=== PATIENT | female | born 1990 | race Caucasian/White ===

== ENCOUNTER → 2023-07-06 16:34 | Outpatient (CLI) | payer OTHER, SELFPAY ==
--- NOTE | 2023-07-06 16:30 | DI.US.S_ITS ---
PROCEDURE: US PELVIC COMPLETE INDICATIONS: IRREGULAR PERIODS TECHNIQUE: Real-time scanning was performed of the pelvic organs, with image documentation. Additional endovaginal scanning was necessary due to incomplete visualization of the adnexal and endometrial structures by transabdominal scanning. COMPARISON: None. FINDINGS: Uterus: Uterus is anteverted and normal in size at 6.0 x 3.1 x 3.8 cm. The myometrium is homogeneous. The endometrium measures 4 mm combined thickness. No uterine fibroids. Ovaries: The right ovary measures 2.6 x 2.2 x 1.9 cm, with a calculated ovarian volume of 0.7 cc. The left ovary measures 2.8 x 1.5 x 1.9 cm, with a calculated ovarian volume of 4.4 cc. The ovaries have a normal sonographic appearance. Less than 12 follicles can be seen in each ovary. No adnexal masses are seen. Mild right hydrosalpinx is noted. Other: Mild physiologic fluid within the pelvis. No pathologic free abdominal or pelvic fluid. IMPRESSION: 1. Moderate hydrosalpinx, nonspecific. 2. Otherwise, unremarkable pelvic ultrasound. We strive to produce accurate, complete, and clear reports of imaging services. To assist us in improving patient care, this report was composed using standard report templates and voice recognition software. Therefore, it may contain abnormal punctuation, insertions and/or omissions. Occasional wrong-word or sound-alike substitutions may occur. Though we review the report and make efforts to correct it, we do recommend that the report be read carefully in proper context to recognize any text inaccuracies. Dictated by: Javier Kathleen M.D. on 07/07/2023 at 8:48 Approved by: Javier Kathleen M.D. on 07/07/2023 at 8:52
== END ==
PROVIDERS: PCP Nurse Practitioner Family; Referring Provider Obstetrics & Gynecology; Visit Provider Obstetrics & Gynecology
DX: N92.6 Irregular menstruation, unspecified (principal); N70.11 Chronic salpingitis
CPT/HCPCS: 76830; 76856; 93976

== ENCOUNTER 2023-09-07 17:23 | Emergency (ER) | payer OTHER, SELFPAY ==
[2023-09-07 17:27] VITALS: BP 140/89; PULSE 77; RESP 18; TEMP 36.6; O2SAT 98; BMI 32.5
[2023-09-07] MEDS: ONDANSETRON 4 MG/2 ML INJ IV (17:58)
[2023-09-07] MEDS: SODIUM CHLORIDE 0.9% 1,000 ML 1000 ML IV (17:58)
[2023-09-07 18:08] VITALS: PULSE 76; O2SAT 96
[2023-09-07 18:09] LABS: Add Manual Diff / Slide Review NO; Basophils Absolute Auto 100 /uL (0-100); Basophils Percent Auto 0.9 % (0-2); Eosinophils Absolute Auto 0 /uL (0-450); Eosinophils Percent Auto 0.3 % (2-4); Hematocrit 42.2 % (36-46); Hemoglobin 14.2 g/dL (12.0-16.0); Lymphocytes Absolute Auto 2500 /uL (1100-4500); Lymphocytes Percent Auto 21.4 % (25-40); Mean Corpuscular HGB Conc 33.8 % (30-36); Mean Corpuscular Hemoglobin 27.8 PG (26-34); Mean Corpuscular Volume 82.4 fL (80-100); Monocytes Absolute Auto 400 /uL (0-900); Monocytes Percent Auto 3.4 % (3-14); Neutrophils Absolute Auto 8500 /uL (1500-7000); Platelet Count 297 X10^3/uL (150-400); Red Blood Cell Count 5.12 X10^6/uL (4.0-5.2); Red Cell Distribution Width 13.6 % (11.6-14.8); White Blood Cell Count 11.5 X10^3/uL (4.5-11.0)
[2023-09-07 18:20] LABS: Alanine Aminotransferase 99 IU/L (<35); Albumin 4.8 g/dL (3.5-5.0); Albumin Globulin Ratio 1.3 (1.0-2.8); Alkaline Phosphatase 93 U/L (38-126); Aspartate Aminotransferase 56 IU/L (14-36); BUN Creatinine Ratio 16.4 (6-22); Bilirubin Total 0.9 mg/dL (0.2-1.3); Blood Urea Nitrogen 9 mg/dL (7-17); Carbon Dioxide 25 mmol/L (22-32); Chloride 104 mmol/L (98-107); Estimated Glomerular Filt Rate > 60 mL/min (>60); Globulin 3.7 g/dL (1.7-4.1); Glucose 128 mg/dL (70-100); HEMOLYSIS 26 (0-50); Lipase 55 U/L (23-300); Potassium 4.1 mmol/L (3.4-5.1); Sodium 137 mmol/L (137-145); Total Protein 8.5 g/dL (6.3-8.2)
[2023-09-07 18:30] VITALS: BP 135/89; PULSE 81; O2SAT 95
--- NOTE | 2023-09-07 18:46 | DI.RAD.S_ITS ---
PROCEDURE: XR CHEST 1V INDICATIONS: chest pain TECHNIQUE: One view of the chest was acquired. COMPARISON: None. FINDINGS: Surgical changes and devices: None. Lungs and pleura: Lungs are clear. No pleural effusions or pneumothorax. Mediastinum: Mediastinal contours appear normal. Heart size is normal. Bones and chest wall: No suspicious bony lesions. Overlying soft tissues appear unremarkable. IMPRESSION: No acute pulmonary process. Dictated by: Jes Adame M.D. on 09/07/2023 at 20:12 Approved by: Jes Adame M.D. on 09/07/2023 at 20:15
[2023-09-07 19:00] VITALS: BP 126/82; PULSE 71; O2SAT 95
[2023-09-07] MEDS: DROPERIDOL 5 MG/2 ML VIAL 0.625 MG IV (19:05)
[2023-09-07] MEDS: KETOROLAC 30 MG/ML VIAL 15 MG IV (19:05)
[2023-09-07] MEDS: diphenhydrAMINE 50 MG/ML VIAL 25 MG IV (19:05)
--- NOTE | 2023-09-07 19:10 | ED.HA ---
HPI - Headache General Chief Complaint: Headache Stated Complaint: T-1 V/Headachs/chest/arm pain Time Seen by Provider: 09/07/23 17:43 Mode of arrival: Ambulatory History of Present Illness HPI Narrative: 33-year-old female with a history of headaches presenting today with a headache and had an episode of vomiting that she had chest pain with. Patient says that she has a history of headaches and this is a typical headache. It was not thunderclap in onset it is not associated with fevers. She usually takes ibuprofen, she took ibuprofen this morning and vomited. The patient was still having nausea she says her headaches currently about a 6/10. She had substernal chest pain after vomiting. No personal history of heart disease no personal history of hypertension or elevated cholesterol. Says her father had a stroke. She is not been having fevers, state that she is not . Last menstrual period was about 10 days ago. Related Data Previous Rx's Medication Instructions Recorded cephalexin 500 mg capsule 500 mg PO TID cystitis #15 caps 09/07/23 ondansetron 4 mg disintegrating 4 mg PO Q8H PRN nausea and 09/07/23 tablet vomiting #7 tabs Allergies Allergy/AdvReac Type Severity Reaction Status Date / Time No Known Drug Allergies Allergy Unverified 08/08/23 09:55 Patient History Medical History (Updated 09/07/23 @ 20:36 by Jewel Jean MD) Light sensitivity Headache (~2017) Chronic back pain (~2018) Ankle pain (~2018) Ovarian cyst (~2018) Family History (Updated 08/07/23 @ 20:33 by Bambi Jacinto) Father Stroke Mother Hypertension Hyperlipidemia Grandfather Diabetes mellitus Hypertension Grandfather History of heart disease Stroke Grandmother Diabetes mellitus Social History Smoking Status: Never smoker Smoking Status: Never smoker Substance Use Type: does not use Exam Initial Vital Signs Initial Vital Signs: Vital Signs Temperature 97.9 F 09/07/23 17:27 Pulse Rate 77 09/07/23 17:27 Respiratory Rate 18 09/07/23 17:27 Blood Pressure 140/89 09/07/23 17:27 Pulse Oximetry 98 09/07/23 17:27 Oxygen Delivery Method Room Air 09/07/23 17:27 Const General: No acute distress HENMT Head: normocephalic and atraumatic Eyes Pupils: PERRL EOM: EOM intact bilaterally Neck Neck: no meningeal signs Resp Effort & Inspection: normal respiratory effort Auscultation: clear to auscultation bilaterally Cardio Rate: regular rate Rhythm: regular rhythm Heart Sounds: no murmurs Skin General: dry skin and warm Neuro General: patient alert, patient oriented x3, moves all extremities and no focal motor deficits Course Orders Ordered: ED Orders 09/07/23 18:00 Complete Blood Count AUTO DIFF Stat Comprehensive Metabolic Panel Stat Lipase Stat Trop I [Troponin I] Stat 09/07/23 18:46 Chest [XR chest 1V] Stat 09/07/23 19:09 EKG-12 Lead Stat 09/07/23 20:23 Urine Culture Stat Urine Microscopic Stat Discontinued Medications Diphenhydramine HCl (Diphenhydramine 50 Mg/Ml Vial) 25 mg IV NOW ONE Stop: 09/07/23 18:47 Last Admin: 09/07/23 19:05 Dose: 25 mg Documented By: AMV Droperidol (Droperidol 5 Mg/2 Ml Vial) 0.625 mg IV NOW ONE Stop: 09/07/23 18:47 Last Admin: 09/07/23 19:05 Dose: 0.625 mg Documented By: AMV Sodium Chloride (Normal Saline 0.9%) 1,000 mls @ 1,000 mls/hr IV BOLUS ONE Stop: 09/07/23 18:43 Last Infusion: 09/07/23 18:53 Dose: Infused Documented By: Admin: 09/07/23 17:58 Dose: 1,000 mls/hr Documented By: AMV Ketorolac Tromethamine (Ketorolac 30 Mg/Ml Vial) 15 mg IV NOW ONE Stop: 09/07/23 18:47 Last Admin: 09/07/23 19:05 Dose: 15 mg Documented By: AMV Ondansetron HCl (Ondansetron 4 Mg/2 Ml Inj) 4 mg IV NOW ONE Stop: 09/07/23 17:45 Last Admin: 09/07/23 17:58 Dose: 4 mg Documented By: AMV Vital Signs Vital signs: Vital Signs - 8 hr 09/07/23 17:27 09/07/23 18:08 09/07/23 18:30 Temperature 97.9 F Pulse Rate 77 76 Respiratory Rate 18 Blood Pressure 140/89 135/89 Pulse Oximetry 98 96 Oxygen Delivery Method Room Air 09/07/23 18:30 09/07/23 19:00 09/07/23 19:00 Temperature Pulse Rate 81 71 Respiratory Rate Blood Pressure 126/82 Pulse Oximetry 95 95 Oxygen Delivery Method 09/07/23 19:30 09/07/23 19:30 09/07/23 20:00 Temperature Pulse Rate 77 68 Respiratory Rate Blood Pressure 127/79 Pulse Oximetry 94 94 Oxygen Delivery Method Room Air Room Air 09/07/23 20:00 Temperature 97.8 F Pulse Rate Respiratory Rate 18 Blood Pressure 114/64 Pulse Oximetry Oxygen Delivery Method MDM - Headache Lab Data Lab results narrative: CBC with diff and CMP are unremarkable, troponin is normal 09/07/23 18:00 09/07/23 18:00 Labs: Lab Results 09/07/23 09/07/23 Range/Units 18:00 20:23 WBC 11.5 H (4.5-11.0) X10^3/uL RBC 5.12 (4.0-5.2) X10^6/uL Hgb 14.2 (12.0-16.0) g/dL Hct 42.2 (36-46) % MCV 82.4 (80-100) fL MCH 27.8 (26-34) PG MCHC 33.8 (30-36) % RDW 13.6 (11.6-14.8) % Plt Count 297 (150-400) X10^3/uL Neut % (Auto) 74.0 (50-75) % Lymph % (Auto) 21.4 L (25-40) % [place] % (Auto) 3.4 (3-14) % Eos % (Auto) 0.3 L (2-4) % Baso % (Auto) 0.9 (0-2) % Neut # (Auto) 8500 H (9399-8257) /uL Lymph # (Auto) 2500 (1760-7309) /uL [place] # (Auto) 400 (0-900) /uL Eos # (Auto) 0 (0-450) /uL Baso # (Auto) 100 (0-100) /uL Sodium 137 (137-145) mmol/L Potassium 4.1 (3.4-5.1) mmol/L Chloride 104 (98-107) mmol/L Carbon Dioxide 25 (22-32) mmol/L BUN 9 (7-17) mg/dL Creatinine 0.55 (0.52-1.04) mg/dL Estimated GFR > 60 (>60) mL/min BUN/Creatinine Ratio 16.4 (6-22) Glucose 128 H (70-100) mg/dL Calcium 10.0 (8.4-10.2) mg/dL Total Bilirubin 0.9 (0.2-1.3) mg/dL AST 56 H (14-36) IU/L ALT 99 H (<35) IU/L Alkaline Phosphatase 93 (38-126) U/L Troponin I < 0.012 (0.01-0.034) ng/mL Total Protein 8.5 H (6.3-8.2) g/dL Albumin 4.8 (3.5-5.0) g/dL Globulin 3.7 (1.7-4.1) g/dL Albumin/Globulin Ratio 1.3 (1.0-2.8) Lipase 55 (23-300) U/L Urine RBC None seen (0-5/HPF) Urine WBC 0-1/hpf (0-5/HPF) Ur Squamous Epith Cells 0-1 /hpf (0-5/HPF) Urine Bacteria Few (2-10) H (None) Ur Culture Indicated? Specimen cultured Point of Care Testing Test Results Negative Urine Dip Bedside Urine Glucose Negative Bedside Urine Bilirubin - Negative Bedside Urine Ketone +/- 5 Urine Specific [place] 1.010 Bedside Urine Occult Blood - Negative Bedside Urine pH 7.5 Bedside Urine Protein - Negative Bedside Urine Urobilinogen - Negative Bedside Urine Nitrite + Positive Bedside Urine Leukocytes - Negative Esterase Imaging Data Chest x-ray: My Impression: No acute disease Radiologist's Impression: No acute findings reported. See radiologist's dictation for details ECG Data Interpretation: Normal sinus rhythm at [address] segment changes normal axis normal intervals no previous infarction MDM Narrative Medical decision making narrative: 33-year-old female with a history of headaches presenting with a headache and vomiting. She is also complaining of chest pain that occurred when she vomited. Does not have cardiac risk factors, no features of the presentation this suggest pulmonary embolism. Headache does not have red flag features. Chest pain evaluation is reassuring and she responded well to treatment with droperidol ketorolac and Benadryl. I wrote a prescription for ondansetron for her use at home if needed. Additionally, the patient had urinary symptoms yesterday, and urinalysis is suggestive of infection. I covered this with cephalexin Discharge Plan Departure Patient Disposition: Home Clinical Impression: Cystitis Headache Qualifiers: Headache type: unspecified Headache chronicity pattern: acute headache Intractability: not intractable Qualified Code(s): R51.9 - Headache, unspecified Chest pain Qualifiers: Chest pain type: unspecified Qualified Code(s): R07.9 - Chest pain, unspecified Activity Restrictions/Additional Instructions: Today we treated you for a headache, and evaluated chest pain. I provided a prescription for ondansetron to use as needed if you are having nausea at home, I recommend using that about 20 minutes prior to taking ibuprofen if you have nausea with the headache. Additionally, urinalysis does suggest that you have a bladder infection, given the you had symptoms yesterday I sent a prescription for an antibiotic, cephalexin. Take this as prescribed for the full course. Follow up with your primary care provider soon regarding her headache. If you are having fevers uncontrolled vomiting severe headache or other acute symptoms recheck in the emergency department. Prescriptions: New ondansetron 4 mg tablet,disintegrating 4 mg PO Q8H PRN (Reason: nausea and vomiting) Qty: 7 0RF cephalexin 500 mg capsule 500 mg PO TID Qty: 15 0RF Referrals: Shaina Arredondo ARNP [Primary Care Provider] - Stand Alone Forms: Patient Portal/API
[2023-09-07 19:22] LABS: Troponin I < 0.012 ng/mL (0.01-0.034)
[2023-09-07 19:30] VITALS: BP 127/79; PULSE 77; O2SAT 94
[2023-09-07 20:00] VITALS: BP 114/64; PULSE 68; RESP 18; TEMP 36.6; O2SAT 94
[2023-09-07 20:45] LABS: Bacteria Urine Few (2-10); Culture Indicated Urine Specimen Cultured; RBC Urine None Seen (0-5/HPF); Squamous Epithelial Cell Urine 0-1 /HPF (0-5/HPF); WBC Urine 0-1/HPF (0-5/HPF)
== END 2023-09-07 20:48 | disposition home or self-care (01) ==
PROVIDERS: Emergency Medicine; Emergency Provider Emergency Medicine; PCP Nurse Practitioner Family
DX: N30.90 Cystitis, unspecified without hematuria (principal); R51.9 Headache, unspecified; R07.9 Chest pain, unspecified
CPT/HCPCS: 36415; 71045; 80053; 81003; 81015; 81025; 83690; 84484; 85025; 87086; 93005; 93010; 96361; 96374; 96375; 99284; J1200; J1790; J1885; J2405

== ENCOUNTER 2023-12-26 07:19 | Emergency (ER) | payer BC, OTHER, SELFPAY ==
[2023-12-26 07:23] VITALS: O2SAT 96
[2023-12-26 07:24] VITALS: BP 151/96; PULSE 99; O2SAT 97
[2023-12-26 07:25] VITALS: BP 151/96; PULSE 92; RESP 18; TEMP 36.9; O2SAT 99; BMI 32.5
--- NOTE | 2023-12-26 07:59 | DI.US.S_ITS ---
PROCEDURE: US PERIPH VENOUS UP EXTREM PAOLA INDICATIONS: PAIN TECHNIQUE: Real-time imaging, as well as color and pulse Doppler interrogation, was performed of the right upper extremity deep veins from the inferior neck to the antecubital fossa. COMPARISON: None. FINDINGS: Right: The internal jugular veins, visualized portions of the subclavian veins, axillary veins, and brachial veins are free of intraluminal thrombus. Where physically possible, the veins are normally compressible. Color and pulse Doppler demonstrate normal intraluminal flow, with expected phasicity and pulsatility. Additional scanning of the cephalic and basilic veins of the superficial system demonstrates normal compressibility, without thrombus. . IMPRESSION: No findings of deep venous thrombosis can be seen within the right upper extremity. Dictated by: Gosia Rodriguez M.D. on 12/26/2023 at 9:10 Approved by: Gosia Rodriguez M.D. on 12/26/2023 at 9:13
[2023-12-26] MEDS: DOXYCYCLINE HYCLATE 100 MG TABLET PO (08:24)
--- NOTE | 2023-12-26 08:30 | ED_ITS ---
HPI - Allergic Reaction General Chief complaint: Allergic Reaction Stated complaint: swelling on feet, upper lip, L arm pain Time Seen by Provider: 12/26/23 07:49 Source: patient Mode of arrival: Family Vehicle History of Present Illness HPI narrative: Patient here for multiple complaints. Possible allergic reaction to Bactrim. Patient is seen by dermatology services last Monday. Started taking Bactrim Monday. She states she has a cyst on the left groin area and is scheduled for removal on January 05. She was placed on 10 days of antibiotics as prophylaxis. She denies any vaginal lesions. She thinks she has had Bactrim before, however Monday she noticed bilateral feet swelling and itching that has resolved. She also noticed right upper lip swelling that has improved. She now complains of bilateral forearm discomfort. Denies any history of blood clots in legs or lungs. No chest complaints no chest pain or shortness of breath. No calf pain or swelling. She stopped taking the Bactrim Monday night. She did not have any antibiotics yesterday or today. Denies does not want a test Related Data Previous Rx's Medication Instructions Recorded doxycycline monohydrate 100 mg 100 mg PO BID #20 caps 12/26/23 capsule Allergies Allergy/AdvReac Type Severity Reaction Status Date / Time Sulfa (Sulfonamide Allergy Intermediate Rash Verified 12/26/23 09:27 Antibiotics) Review of Systems Review of Systems Narrative: GENERAL: negative chills, fatigue, malaise, fever, sweats. HEENT: negative sinus pain, ear pain, sore throat RESPIRATORY: negative dyspnea, cough CARDIOVASCULAR: negative chest pain, palpitations GASTROINTESTINAL: negative nausea, vomiting, abdominal pain : negative dysuria, frequency, hematuria MUSCULOSKELETAL: Positive muscle or bony pain SKIN: negative rash, skin lesions, positive pruritus, positive edema NEUROLOGIC: negative weakness, numbness ROS Unobtainable: All systems reviewed & are unremarkable except as noted in HPI and below Patient History Medical History Light sensitivity Headache (~2017) Chronic back pain (~2018) Ankle pain (~2018) Ovarian cyst (~2018) Family History Father Stroke Mother Hypertension Hyperlipidemia Grandfather Diabetes mellitus Hypertension Grandfather History of heart disease Stroke Grandmother Diabetes mellitus Social History Smoking Status: Never smoker Smoking Status: Never smoker Substance Use Type: does not use Exam Narrative Exam Narrative: GENERAL: in no distress, not toxic not dyspneic HEAD: Normocephalic. EYES: Pupils equal round ENT: Mucous membranes moist. Mild edema to the right upper corner of the lip. No induration. No palpable abscess. No red streaking NECK: Trachea midline. CARDIOVASCULAR: Regular rate and rhythm RESPIRATORY: Clear to auscultation. Breath sounds equal bilaterally. No wheezes, rales, or rhonchi. GASTROINTESTINAL: Abdomen soft, non-tender EXTREMITIES: No gross deformities. Feet and calves are nontender no erythema edema. No hives or angioedema or urticaria., examination upper extremities nontender bilateral arms and forearms. No palpable cords. Light touch intact bilateral hands and fingers and thumbs. 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 Strong radial pulses with brisk cap refills. Nontender shoulders elbows wrists. BACK: No flank tenderness. NEURO: AOx4. SKIN: Warm and dry PSYCH: Not anxious, is cooperative Initial Vital Signs Initial Vital Signs: Vital Signs Pulse Oximetry 96 12/26/23 07:23 Course Orders Ordered: Discontinued Medications Doxycycline Hyclate (Doxycycline Hyclate 100 Mg Tablet) 100 mg PO NOW ONE Stop: 12/26/23 08:01 Last Admin: 12/26/23 08:24 Dose: 100 mg Documented By: MELANIE Vital Signs Vital signs: Vital Signs - 8 hr 12/26/23 07:25 Temperature 98.5 F Pulse Rate 92 H Respiratory Rate 18 Blood Pressure 151/96 H Pulse Oximetry 99 Oxygen Delivery Method Room Air MDM - Allergic Reaction Lab Data 12/26/23 08:56 12/26/23 08:56 Labs: Lab Results 12/26/23 Range/Units 08:56 WBC 8.3 (4.5-11.0) X10^3/uL RBC 4.58 (4.0-5.2) X10^6/uL Hgb 13.0 (12.0-16.0) g/dL Hct 38.8 (36-46) % MCV 84.8 (80-100) fL MCH 28.4 (26-34) PG MCHC 33.5 (30-36) % RDW 13.7 (11.6-14.8) % Plt Count 213 (150-400) X10^3/uL Neut % (Auto) 60.9 (50-75) % Lymph % (Auto) 26.2 (25-40) % [place] % (Auto) 7.7 (3-14) % Eos % (Auto) 4.7 H (2-4) % Baso % (Auto) 0.5 (0-2) % Neut # (Auto) 5100 (2295-3403) /uL Lymph # (Auto) 2200 (2190-1087) /uL [place] # (Auto) 600 (0-900) /uL Eos # (Auto) 400 (0-450) /uL Baso # (Auto) 0 (0-100) /uL Sodium 136 L (137-145) mmol/L Potassium 4.1 (3.4-5.1) mmol/L Chloride 107 (98-107) mmol/L Carbon Dioxide 23 (22-32) mmol/L BUN 13 (7-17) mg/dL Creatinine 0.58 (0.52-1.04) mg/dL Estimated GFR > 60 (>60) mL/min BUN/Creatinine Ratio 22.4 H (6-22) Glucose 104 H (70-100) mg/dL Calcium 9.0 (8.4-10.2) mg/dL Magnesium 2.2 (1.6-2.3) mg/dL Total Bilirubin 0.8 (0.2-1.3) mg/dL AST 33 (14-36) IU/L ALT 46 H (<35) IU/L Alkaline Phosphatase 95 (38-126) U/L Total Protein 7.2 (6.3-8.2) g/dL Albumin 4.2 (3.5-5.0) g/dL Globulin 3.0 (1.7-4.1) g/dL Albumin/Globulin Ratio 1.4 (1.0-2.8) Imaging Data US - DVT: Radiologist's Impression: [address] [id number] Ultrasound Report Signed Patient: Lacie Khan MR#: [id number] : 1990 Acct:[id number] Age/Sex: 33 / F Date of Service: 12/26/23 Loc: ED Accession Number: [id number] Procedure: perip venous up extrem paola Ordering Provider: Mohit Garcia MD PROCEDURE: PERIP VENOUS UP EXTREM PAOLA INDICATIONS: PAIN TECHNIQUE: Real-time imaging, as well as color and pulse Doppler interrogation, was performed of the right upper extremity deep veins from the inferior neck to the antecubital fossa. COMPARISON: None. FINDINGS: Right: The internal jugular veins, visualized portions of the subclavian veins, axillary veins, and brachial veins are free of intraluminal thrombus. Where physically possible, the veins are normally compressible. Color and pulse Doppler demonstrate normal intraluminal flow, with expected phasicity and pulsatility. Additional scanning of the cephalic and basilic veins of the superficial system demonstrates normal compressibility, without thrombus. . IMPRESSION: No findings of deep venous thrombosis can be seen within the right upper extremity. Dictated by: Gosia Rodriguez M.D. on 12/26/2023 at 9:10 Approved by: Gosia Rodriguez M.D. on 12/26/2023 at 9:13 [facility] Narrative Medical decision making narrative: Patient here for multiple complaints. Possible allergic reaction to Bactrim. Patient is seen by dermatology services last Monday. Started taking Bactrim Monday. She states she has a cyst on the left groin area and is scheduled for removal on January 05. She was placed on 10 days of antibiotics as prophylaxis. She denies any vaginal lesions. She thinks she has had Bactrim before, however Monday she noticed bilateral feet swelling and itching that has resolved. She also noticed right upper lip swelling that has improved. She now complains of bilateral forearm discomfort. Denies any history of blood clots in legs or lungs. No chest complaints no chest pain or shortness of breath. No calf pain or swelling. She stopped taking the Bactrim Monday night. She did not have any antibiotics yesterday or today. Denies does not want a test After history and exam CBC CMP magnesium ultrasound bilateral arms, doxycycline MDM Medical records reviewed: No recent visit here for this complaint Differential considered: Includes but not limited to medication reaction/allergy/DVT Lab Test results independently reviewed as above. Pertinent findings: WBC 8.3 Imaging studies independently reviewed: Ultrasound bilateral arms negative for DVT Treatments: Doxycycline Re-evaluations: 9:30 a.m.. Reviewed results with patient. Laboratory studies and imaging are reassuring. She does understand sulfa is likely an allergy now. We have noted this in her chart. Return precautions reviewed work note provided new prescription doxycycline provided not toxic at discharge. She desires discharge home Discussion: Appropriate for discharge home exam is reassuring laboratory studies and imaging are reassuring. Patient likely having allergic reaction to sulfa. She has discontinued it. New prescription doxycycline has been provided. Return precautions reviewed. She desires discharge home. Diagnosis: Drug allergy Discharge Plan Departure Patient Disposition: Home Clinical Impression: Adverse reaction to drug Qualifiers: Encounter type: initial encounter Qualified Code(s): T50.905A - Adverse effect of unspecified drugs, medicaments and biological substances, initial encounter Instructions: DI for Adverse Drug Reaction -- Allergic Activity Restrictions/Additional Instructions: Please discontinue previous antibiotics/Bactrim that was given to you over the weekend. This is likely causing you allergic reaction. Please make note that you are allergic to sulfa for future medication. See your change advisor as scheduled. Please see your family doctor in a week for re-evaluation. New prescription doxycycline has been provided for you and to continue this evening. It is a 10 day course. It has been sent to your pharmacy. Return if worse if any questions or concerns Prescriptions: New doxycycline monohydrate 100 mg capsule 100 mg PO BID Qty: 20 0RF Referrals: Shaina Arredondo ARNP [Primary Care Provider] - Stand Alone Forms: Patient Portal/API, Work Release Note
[2023-12-26 09:09] LABS: Add Manual Diff / Slide Review NO; Basophils Absolute Auto 0 /uL (0-100); Basophils Percent Auto 0.5 % (0-2); Eosinophils Absolute Auto 400 /uL (0-450); Eosinophils Percent Auto 4.7 % (2-4); Hematocrit 38.8 % (36-46); Lymphocytes Absolute Auto 2200 /uL (1100-4500); Lymphocytes Percent Auto 26.2 % (25-40); Mean Corpuscular HGB Conc 33.5 % (30-36); Mean Corpuscular Hemoglobin 28.4 PG (26-34); Mean Corpuscular Volume 84.8 fL (80-100); Monocytes Absolute Auto 600 /uL (0-900); Monocytes Percent Auto 7.7 % (3-14); Neutrophils Absolute Auto 5100 /uL (1500-7000); Neutrophils Percent Auto 60.9 % (50-75); Platelet Count 213 X10^3/uL (150-400); Red Blood Cell Count 4.58 X10^6/uL (4.0-5.2); Red Cell Distribution Width 13.7 % (11.6-14.8); White Blood Cell Count 8.3 X10^3/uL (4.5-11.0)
[2023-12-26 09:20] LABS: Alanine Aminotransferase 46 IU/L (<35); Albumin 4.2 g/dL (3.5-5.0); Albumin Globulin Ratio 1.4 (1.0-2.8); Alkaline Phosphatase 95 U/L (38-126); Aspartate Aminotransferase 33 IU/L (14-36); BUN Creatinine Ratio 22.4 (6-22); Bilirubin Total 0.8 mg/dL (0.2-1.3); Blood Urea Nitrogen 13 mg/dL (7-17); Carbon Dioxide 23 mmol/L (22-32); Chloride 107 mmol/L (98-107); Estimated Glomerular Filt Rate > 60 mL/min (>60); Glucose 104 mg/dL (70-100); HEMOLYSIS < 15 (0-50); Magnesium 2.2 mg/dL (1.6-2.3); Potassium 4.1 mmol/L (3.4-5.1); Sodium 136 mmol/L (137-145); Total Protein 7.2 g/dL (6.3-8.2)
[2023-12-26 09:31] VITALS: PULSE 88; O2SAT 97
[2023-12-26 09:32] VITALS: BP 146/74; PULSE 87; O2SAT 97
== END 2023-12-26 09:36 | disposition home or self-care (01) ==
PROVIDERS: Emergency Provider Emergency Medicine; PCP Nurse Practitioner Family
DX: R22.43 Localized swelling, mass and lump, lower limb, bilateral (principal); M79.632 Pain in left forearm; M79.631 Pain in right forearm; T36.8X5A Adverse effect of other systemic antibiotics, initial encounter
CPT/HCPCS: 36415; 80053; 83735; 85025; 93970; 99283; 99284